=== PATIENT | female | born 1980 | race Asian ===

== ENCOUNTER 2024-07-09 11:07 | Emergency (ER) | payer OTHER ==
[~2024-07-09] VITALS: Ht 152.4 cm; Wt 59.4 kg
[2024-07-09 11:23] VITALS: BP_SYST 138; PULSE 104; RESP 17; TEMP 98.2; O2SAT 99
[2024-07-09 11:49] LABS: BASOPHILS % (AUTO) 0.2 % (0.0-2.0); EOSINOPHILS # (AUTO) 0.3 K/uL (0.0-0.4); EOSINOPHILS % (AUTO) 4.7 % (0.0-4.0); HEMATOCRIT 31.7 % (36-48); HEMOGLOBIN 10.3 g/dL (12.0-16.0); LYMPHOCYTES # (AUTO) 0.7 K/uL (1.0-5.5); LYMPHOCYTES % (AUTO) 11.2 % (20.5-51.5); MEAN CORPUSCULAR HEMOGLOBIN 32 pg (27-31); MEAN CORPUSCULAR HGB CONC 33 % (32-36); MEAN CORPUSCULAR VOLUME 98 fL (79.0-98.0); MONOCYTES # (AUTO) 0.5 K/uL (0.0-1.0); NEUTROPHILS # (AUTO) 4.4 K/uL (1.8-7.7); NEUTROPHILS % (AUTO) 74.9 % (40.0-70.0); PLATELET COUNT (AUTO) 99 K/uL (130-430); RED BLOOD CELL COUNT(AUTO) 3.23 MIL/uL (4.2-6.2); RED CELL DISTRIBUTION WIDTH 20.9 % (9.0-15.0); WHITE BLOOD COUNT (AUTO) 5.8 K/uL (4.8-10.8)
[2024-07-09 12:02] LABS: ALANINE AMINOTRANSFERASE 18 U/L (12-78); ALBUMIN 3.7 g/dL (3.4-4.8); ANION GAP 9 (5-15); ASPARTATE AMINOTRANSFERASE 20 U/L (10-37); BILIRUBIN,DIRECT 0.1 mg/dL (0.0-0.3); CALCIUM 9.3 mg/dL (8.4-11.0); CARBON DIOXIDE 30 mmol/L (23-29); CHLORIDE 104 mmol/L (98-107); CREATINE KINASE, TOTAL 50 U/L (26-192); CREATININE 0.74 mg/dL (0.55-1.30); GFR AFRICAN AMERICAN 109 mL/min (>90); GLUCOSE 100 mg/dL (74-106); PROTHROMBIN TIME 10.1 SECS (9.5-12.5); SODIUM SERUM 143 mmol/L (136-145); TOTAL BILIRUBIN 0.4 mg/dL (0.0-1.0); TOTAL PROTEIN, SERUM 7.6 g/dL (6.4-8.3); UREA NITROGEN, BLOOD 10 mg/dL (8-21)
[2024-07-09 12:08] LABS: GFR NON AFRICAN-AMERICAN 90 mL/min (>90)
[2024-07-09 13:13] VITALS: BP_SYST 138; PULSE 104; RESP 17; TEMP 98.2; O2SAT 99
== END 2024-07-09 13:12 | disposition home or self-care (01) ==
LOC: SED 11:07
DX: S82.892A Other fracture of left lower leg, initial encounter for closed fracture (principal); R55 Syncope and collapse; E11.9 Type 2 diabetes mellitus without complications; I10 Essential (primary) hypertension; E78.5 Hyperlipidemia, unspecified; Z85.3 Personal history of malignant neoplasm of breast; W18.39XA Other fall on same level, initial encounter; Y93.89 Activity, other specified; Y92.89 Other specified places as the place of occurrence of the external cause; Y99.8 Other external cause status
CPT/HCPCS: 36415; 70450-TC; 71045; 80048; 80076; 82550; 83605; 84484; 85025; 85610; 85730; 93005; 99285